=== PATIENT | female | born 1970 | race African-American/Black ===

== ENCOUNTER 2018-01-23 20:10 | Emergency (ER) | payer OTHER ==
[~2018-01-23] VITALS: Ht 162.6 cm; Wt 83.2 kg
[~2018-01-23 20:10] MED LIST: EXCEDRIN MIGRAINE; FIORTAB4 PO; PROM25TA5 PO
[2018-01-23] MEDS ORDERED: IOHEXOL 350 MG/ML 10 ML VIAL (for RAD DIAG) IVCONTRAST ONE (20:11)
[2018-01-23 20:25] VITALS: BP 127/77; PULSE 85; RESP 16; TEMP 98.8; O2SAT 100
[2018-01-23] MEDS ORDERED: BUPR150XL PO (20:34)
[2018-01-23] MEDS ORDERED: ATOR20TA15 PO (20:34)
[2018-01-23] MEDS ORDERED: SODIUM CHLOR 0.9% 1000 ML INJ 1,000 ML IV SCH (21:06)
--- NOTE | 2018-01-23 21:13 | PD ---
HPI Chief Complaint: GI Complaint Time Seen by Provider: 21:06 Travel History International Travel<30 days: No Contact w/Intl Traveler<30days: No Traveled to known affect area: No History of Present Illness HPI 47-year-old female presents to the emergency department by private transportation for complaint of right lower quadrant abdominal pain. Patient has had abdominal discomfort and change in bowel habits 1 month. Symptoms have worsened over the past 24-48 hours. Patient was seen by her primary care provider last week and started on MiraLAX also underwent testing of urine without evidence of an infectious process. Patient denies fever chills vomiting diarrhea black tarry stool bloody stool or hematuria. Patient has had no vaginal discharge or vaginal bleeding. Patient has had some mild nausea and decreased appetite. Patient states symptoms have not improved since starting MiraLAX. Patient states that the caliber of her stool has changed to where it is now very thin and string-like. Patient has been referred to senior grant writer for further evaluation. No history of inflammatory bowel disease colitis or diverticulitis. Patient does have irritable bowel syndrome. Patient states due to increase in pain was unable to wait until she could be seen by senior grant writer. Unable to identify exacerbating or alleviating factors. Patient is taken no pain medication for symptom relief. PFSH Past Medical History Narrative Medical Anxiety dyslipidemia irritable bowel syndrome hysterectomy migraines cataract surgery appendectomy adhesiolysis; no tobacco use; nursing notes reviewed Autoimmune Disease: No Blood Disorders: No Anxiety: Yes Heart Rhythm Problems: No Cancer: No Cardiac Catheterization: No Cardiovascular Problems: Yes (high chol ) High Cholesterol: Yes Congestive Heart Failure: No Diabetes: No Diminished Hearing: No Endocrine: No Gastrointestinal Disorders: Yes (IRRITABLE BOWEL SYNDROME) Genitourinary: No Hypertension: No Immune Disorder: No Musculoskeletal: No Neurologic: Yes Psychiatric: Yes Reproductive: Yes (HYSTERECTOMY 2005) Respiratory: No Migraines: Yes Myocardial Infarction: No Seizures: Yes Thyroid Disease: No Tetanus Vaccination: Unknown Influenza Vaccination: No ?: Not : 1 Para: 1 Past Surgical History Abdominal Surgery: Yes (APPENDECTOMY) AICD: No Appendectomy: Yes (06/2006) Arteriovenous Shunt: No Coronary Artery Bypass Graft: No Eye Surgery: Yes (LEFT CATARACT EXTRACTION WITH IOL 02/2007) Gynecologic Surgery: Yes (ABD. HYSTERECTOMY-OOPHRECTOMY) Hysterectomy: Yes (partial) Insulin Pump: No Joint Replacement: No Pacemaker: No Other Surgery: Yes Family History Family Myocardial Infarction: Yes (MOTHER) Social History Alcohol Use: No Tobacco Use: No Substance Use: No Allergies-Medications (Allergen,Severity, Reaction): Coded Allergies: lidocaine (Unverified Allergy, Severe, Hives, NEEDS PRESERVATIVE FREE, ) Uncoded Allergies: ALL JUSTO MEDICATIONS (Allergy, Severe, NEEDS PRESERVATIVE FREE, 12/02/08) Reported Meds & Prescriptions Reported Meds & Active Scripts Active Reported Wellbutrin Xl 24 HR (Bupropion HCl) 150 Mg Tab 150 Mg PO DAILY Atorvastatin (Atorvastatin Calcium) 20 Mg Tab 20 Mg PO HS Review of Systems Except as stated in HPI: all other systems reviewed are Neg General / Constitutional: No: Fever, Chills HENT: No: Congestion Cardiovascular: No: Chest Pain or Discomfort Respiratory: No: Shortness of Breath Gastrointestinal: Positive: Nausea, Abdominal Pain, Constipation, Loss of Appetite, No: Vomiting, Diarrhea, Hematemesis, Hematochezia Genitourinary: No: Urgency, Frequency, Dysuria, Hematuria, Pelvic Pain, Flank Pain, Discharge, Vaginal Bleeding Musculoskeletal: No: Myalgias, Arthralgias Skin: No Rash Neurologic: No: Weakness, Dizziness, Syncope Psychiatric: No: Anxiety Hematologic/Lymphatic: No: Lymph Node Enlargement Physical Exam Narrative GENERAL: Well-developed well-nourished female no acute distress no respiratory distress; standing at bedside SKIN: Warm and dry. HEAD: Normocephalic. EYES: No scleral icterus. No injection or drainage. NECK: Supple, trachea midline. No JVD or lymphadenopathy. CARDIOVASCULAR: Regular rate and rhythm without murmurs, gallops, or rubs. RESPIRATORY: Breath sounds equal bilaterally. No accessory muscle use. GASTROINTESTINAL: Abdomen soft, mild tenderness to palpation right lower quadrant without guarding or rebound., nondistended. MUSCULOSKELETAL: No cyanosis, or edema. BACK: Nontender without obvious deformity. No CVA tenderness. Data Data Last Documented VS Vital Signs Date Time Temp Pulse Resp B/P (MAP) Pulse Ox O2 Delivery O2 Flow Rate FiO2 01/23/18 21:43 83 18 115/77 (90) 97 Room Air 01/23/18 20:25 98.8 Orders Orders Complete Blood Count With Diff (01/23/18 21:06) Comprehensive Metabolic Panel (01/23/18 21:06) Lipase (01/23/18 21:06) Urinalysis - C+S If Indicated (01/23/18 21:06) Iv Access Insert/Monitor (01/23/18 21:06) Oximetry (01/23/18 21:06) Sodium Chlor 0.9% 1000 Ml Inj (Ns 1000 M (01/23/18 21:06) Sodium Chloride 0.9% Flush (Ns Flush) (01/23/18 21:15) Ct Abd/Pel W Iv Contrast(Rout) (01/23/18 ) Ketorolac Inj (Toradol Inj) (01/23/18 21:15) Iohexol 350 Inj (Omnipaque 350 Inj) (01/23/18 20:11) Labs Laboratory Tests Test 01/23/18 21:25 White Blood Count 9.2 TH/MM3 Red Blood Count 4.77 MIL/MM3 Hemoglobin 13.2 GM/DL Hematocrit 39.9 % Mean Corpuscular Volume 83.8 FL Mean Corpuscular Hemoglobin 27.7 PG Mean Corpuscular Hemoglobin Concent 33.0 % Red Cell Distribution Width 12.3 % Platelet Count 330 TH/MM3 Mean Platelet Volume 8.7 FL Neutrophils (%) (Auto) 48.3 % Lymphocytes (%) (Auto) 41.6 % Monocytes (%) (Auto) 5.8 % Eosinophils (%) (Auto) 3.9 % Basophils (%) (Auto) 0.4 % Neutrophils # (Auto) 4.5 TH/MM3 Lymphocytes # (Auto) 3.8 TH/MM3 Monocytes # (Auto) 0.5 TH/MM3 Eosinophils # (Auto) 0.4 TH/MM3 Basophils # (Auto) 0.0 TH/MM3 CBC Comment DIFF FINAL Differential Comment Urine Color YELLOW Urine Turbidity CLEAR Urine pH 5.5 Urine Specific [place] GREATER/EQUAL 1.030 Urine Protein NEG mg/dL Urine Glucose (UA) NEG mg/dL Urine Ketones NEG mg/dL Urine Occult Blood NEG Urine Nitrite NEG Urine Bilirubin NEG Urine Urobilinogen 0.2 MG/DL Urine Leukocyte Esterase NEG Urine RBC 0-2 /hpf Urine WBC 0-2 /hpf Urine Squamous Epithelial Cells 0-5 /hpf Urine Bacteria OCC /hpf Microscopic Urinalysis Comment CULT NOT INDICATED Blood Urea Nitrogen 15 MG/DL Creatinine 0.98 MG/DL Random Glucose 97 MG/DL Total Protein 8.5 GM/DL Albumin 4.0 GM/DL Calcium Level 9.2 MG/DL Alkaline Phosphatase 78 U/L Aspartate Amino Transf (AST/SGOT) 11 U/L Alanine Aminotransferase (ALT/SGPT) 18 U/L Total Bilirubin 0.1 MG/DL Sodium Level 136 MEQ/L Potassium Level 3.8 MEQ/L Chloride Level 103 MEQ/L Carbon Dioxide Level 24.8 MEQ/L Anion Gap 8 MEQ/L Estimat Glomerular Filtration Rate 74 ML/MIN Lipase 85 U/L [facility] Medical Decision Making Medical Screen Exam Complete: Yes Emergency Medical Condition: Yes Medical Record Reviewed: Yes Interpretation(s) Last Impressions Abdomen/Pelvis CT 01/23/18 0000 Signed Impressions: CONCLUSION: 1. The cause of the patient's right lower quadrant pain is not seen. 2. An umbilical hernia containing mesenteric fat. 3. Status post hysterectomy. It appears the cervix is still present. There is 2.4 Center cystic area in the left adnexa likely related to a left ovarian cyst /follicle versus a postoperative seroma. 4. Hepatic cyst and hyperenhancing hepatic masses. These are nonspecific. It c ould represent hemangiomas. CBC & BMP Diagram 01/23/18 21:25 Total Protein 8.5 H, Albumin 4.0, Calcium Level 9.2, Alkaline Phosphatase 78, Aspartate Amino Transf (AST/SGOT) 11 L, Alanine Aminotransferase (ALT/SGPT) 18, Total Bilirubin 0.1 L Vital Signs Date Time Temp Pulse Resp B/P (MAP) Pulse Ox O2 Delivery O2 Flow Rate FiO2 01/23/18 21:43 83 18 115/77 (90) 97 Room Air 01/23/18 21:27 Room Air 01/23/18 20:25 98.8 85 16 127/77 (94) 100 Differential Diagnosis Abdominal pain, diverticulitis, mass, constipation, obstipation, obstruction Narrative Course Specimens collections of resulting imaging study ordered patient kept n.p.o. Toradol 30 mg IV administered Lab values grossly normal range CT pending CT resulted identified to have hepatic hemangioma hepatic cyst and 2.4 cm left ovarian cyst no acute findings otherwise identified evidence of previous hysterectomy and appendectomy. This information is shared with the patient. Patient is stable for outpatient management. Patient has improvement of symptoms/pain after receiving Toradol 30 mg IV Patient is encouraged to follow-up with her primary care provider and keep scheduled appointment with senior grant writer as planned; patient's questions were answered to her satisfaction. Diagnosis Primary Impression: Abdominal pain Qualified Codes: R10.31 - Right lower quadrant pain Additional Impressions: Ovarian cyst, left Hepatic cyst Hepatic hemangioma Referrals: [facility] call for appointment Primary Care Physician 1 day Patient Instructions: General Instructions Additional Instructions: Increase fluid hydration Recommend clear liquid diet for next 1224 hrs. advance as tolerated bland/brat diet and regular diet adding fiber also continue with MiraLAX as part of your bowel regimen Follow-up with your primary care provider call office in a.m. Schedule senior grant writer as planned Take Bentyl as prescribed as needed for pain/spasm Med/Other Pt SpecificInfo: Prescription(s) given Scripts Ondansetron Odt (Zofran Odt) 4 Mg Tab 4 MG SL Q6HR Y for Nausea/Vomiting, #10 TAB 0 Refills Prov: Hannah Marlow MD 01/24/18 Dicyclomine (Bentyl) 10 Mg Cap 10 MG PO Q8HR Y for Bowel Management, #7 CAP 0 Refills Prov: Hannah Marlow MD 01/24/18 Disposition: 01 DISCHARGE HOME Condition: Stable Hannah Marlow MD Jan 23, 2018 21:13
[2018-01-23] MEDS ORDERED: SODIUM CHLORIDE 0.9% FLUSH 10 ML FLUSH IV FLUSH PRN (21:15)
[2018-01-23] MEDS ORDERED: KETOROLAC TROMETHAMINE 30 MG/ML (IVP) VIAL IV PUSH ONE (21:15)
[2018-01-23 21:31] LABS: AUTOMATED NEUTROPHIL # 4.5 TH/MM3 (1.8-7.7); BASOPHIL % 0.4 % (0.0-2.0); EOSINOPHIL # 0.4 TH/MM3 (0-0.4); EOSINOPHIL % 3.9 % (0.0-4.0); HEMATOCRIT 39.9 % (35.0-46.0); HEMOGLOBIN 13.2 GM/DL (11.6-15.3); LYMPH % 41.6 % (9.0-44.0); LYMPHOCYTE # 3.8 TH/MM3 (1.0-4.8); MEAN CELL VOLUME 83.8 FL (80.0-100.0); MEAN CORPUSCULAR HEMOGLOBIN 27.7 PG (27.0-34.0); MEAN PLATELET VOLUME 8.7 FL (7.0-11.0); MONO % 5.8 % (0.0-8.0); MONOCYTE # 0.5 TH/MM3 (0-0.9); NEUT % 48.3 % (16.0-70.0); PLATELET COUNT 330 TH/MM3 (150-450); RED BLOOD COUNT 4.77 MIL/MM3 (4.00-5.30); RED CELL DISTRIBUTION WIDTH 12.3 % (11.6-17.2); WHITE BLOOD COUNT 9.2 TH/MM3 (4.0-11.0)
[2018-01-23 21:32] LABS: BILIRUBIN, URINE NEG (NEG); BLOOD, URINE NEG (NEG); GLUCOSE,URINE NEG (NEG); KETONE, URINE NEG (NEG); NITRITE,URINE NEG (NEG); PH, URINE 5.5 (5.0-8.5); URINE COLOR YELLOW (YELLW/STRAW); URINE LEUKOCYTE ESTERASE NEG (NEG)
[2018-01-23 21:39] LABS: BACTERIA, URINE OCC /hpf; RBC, URINE 0-2 /hpf (0-3); SQUAMOUS EPITHELIAL CELL URINE 0-5 /hpf (0-5); WBC, URINE 0-2 /hpf (0-5)
[2018-01-23 21:40] LABS: CHLORIDE 103 MEQ/L (98-107); SODIUM (NA) 136 MEQ/L (136-145)
[2018-01-23 21:43] VITALS: BP 115/77; PULSE 83; RESP 18; O2SAT 97
[2018-01-23 21:43] LABS: CALCIUM 9.2 MG/DL (8.5-10.1)
[2018-01-23 21:44] LABS: BICARBONATE 24.8 MEQ/L (21.0-32.0); BLOOD UREA NITROGEN 15 MG/DL (7-18); GLUCOSE,RANDOM 97 MG/DL (74-106)
[2018-01-23 21:47] LABS: ALT (GPT) 18 U/L (10-53); AST (GOT) 11 U/L (15-37); CREATININE 0.98 MG/DL (0.50-1.00); GLOMERULAR FILTRATION RATE 74 ML/MIN (>89)
[2018-01-23 21:48] LABS: TOTAL BILIRUBIN ADULT 0.1 MG/DL (0.2-1.0); TOTAL PROTEIN 8.5 GM/DL (6.4-8.2)
[2018-01-23 21:50] LABS: ALKALINE PHOSPHATASE 78 U/L (45-117)
--- NOTE | 2018-01-23 23:56 | RADRPT ---
EXAM DATE: 01/23/2018 11:10 PM EDT AGE/SEX: 47 years / Female INDICATIONS: Right lower quadrant pain for 2 weeks, worsening today, nausea. CLINICAL DATA: This is the patient's initial encounter. Patient reports that signs and symptoms have been present for 2 weeks and indicates a pain score of 8/10. MEDICAL/SURGICAL HISTORY: Irritable bowel syndrome. Appendectomy. Hysterectomy. ORAL CONTRAST: No oral contrast ingested. RADIATION DOSE: 13.73 CTDI (mGy) COMPARISON: No prior exams available for comparison. TECHNIQUE: Multiple contiguous axial images were obtained through the abdomen and pelvis following b olus infusion of 93 ml Omnipaque 350 (iohexol) nonionic water-soluble contrast as a single exam dos e. No oral contrast ingested. Using automated exposure control and adjustment of the mA and/or kV ac cording to patient size, the radiation dose was kept as low as reasonably achievable to obtain optima l diagnostic quality images. FINDINGS: Lower Lungs: The lung bases are grossly clear. Liver: There is a 2.2 cm cyst at the superior aspect of the right lobe and a 1.2 cm cystic lesion inf erior aspect of the right lobe. There are rounded hyperenhancing mass is seen in the right lower live r measuring 0.7 cm superiorly, 1.2 cm at the mid aspect of the right lobe, and 1.6 cm in the lateral segment of the left lobe the liver. Spleen: Homogeneous density without enlargement. Pancreas: Unremarkable without mass or calcification. Kidneys: Normal in size and shape. No evidence of hydronephrosis. There is a 0.4 cm cystic the super ior medial left kidney. Adrenal Glands: Unremarkable. Aorta: The aorta and proximal iliac vessels are grossly unremarkable without aneurysmal dilation. Bowel/Mesentery: The bowel loops are grossly unremarkable. The cecum and sigmoid colon have a normal configuration. There is a suture line seen in the inferior aspect of the cecum prior appendectomy. Abdominal Wall: There is an umbilical hernia containing mesenteric fat. The defect measures 2.1 cm. Retroperitoneum: No evidence of adenopathy in the retrocrural, para-aortic, or deep pelvic regions. Bladder: Contours are smooth. Reproductive Organs: The patient is status post supracervical hysterectomy. There appears to be a beltre ture line seen in the left adnexal region. There is a 2.4 cm cystic area seen in the left adnexa like ly related to a left ovarian cyst versus a postoperative seroma. Inguinal: The inguinal region is unremarkable without evidence of adenopathy. Bony Structures: Unremarkable. CONCLUSION: 1. The cause of the patient's right lower quadrant pain is not seen. 2. An umbilical hernia containing mesenteric fat. 3. Status post hysterectomy. It appears the cervix is still present. There is 2.4 Center cystic area in the left adnexa likely related to a left ovarian cyst/follicle versus a postoperative seroma. 4. Hepatic cyst and hyperenhancing hepatic masses. These are nonspecific. It could represent hemangi omas. Electronically signed by: Bucky Rutledge MD 01/23/2018 11:54 PM EDT
[2018-01-24] MEDS ORDERED: DICY10 PO (00:12)
[2018-01-24] MEDS ORDERED: ZOFR4TAB3 SL (00:13)
[2018-01-24 00:33] VITALS: BP 120/78
== END 2018-01-24 00:40 | disposition home or self-care (01) ==
LOC: PHED 20:10
DX: N83.202 Unspecified ovarian cyst, left side (principal); K76.89 Other specified diseases of liver; D18.03 Hemangioma of intra-abdominal structures; R10.31 Right lower quadrant pain; R11.0 Nausea; R19.4 Change in bowel habit; E78.5 Hyperlipidemia, unspecified; F41.9 Anxiety disorder, unspecified; K58.9 Irritable bowel syndrome, unspecified
CPT/HCPCS: 74177; 80053; 81001; 83690; 85025; 96361; 96374; 99284; J1885; J7030; Q9967